=== PATIENT | male | born 1965 | race Caucasian/White ===

== ENCOUNTER 2017-01-20 10:30 | Emergency (ER) | payer OTHER ==
--- NOTE | 2017-01-20 11:48 | ERNOTE ---
Back Pain ER HPI Date of Service: 01/20/17 Presenting Symptoms: injury/pain to back Time Seen by Provider: 01/20/17 10:52 Source: patient Exam Limitations: no limitations Immunizations: IMMUNIZATION HX Immunizations Up to Date Yes History of Influenza Vaccine No Hx Pneumococcal Vaccination No Allergies/Adverse Reactions: Allergies bee pollen Allergy (Severe, Verified 01/20/17 10:40) Anaphylaxis BEE STINGS Iodinated Contrast- Oral and IV Dye [Iodinated Contrast Media - IV Dye] Allergy (Mild, Verified 01/20/17 10:40) Hives Home Medications: HOME MEDICATIONS EPINEPHrine [Epipen 2-Akhil] 0.3 mg IM ONCE PRN 07/31/15 [Last Taken Unknown] Omeprazole [Prilosec] 40 mg PO DAILY 07/31/15 [Last Taken Unknown] Cyclobenzaprine HCl [Flexeril] 10 mg PO TID PRN #30 tab 01/20/17 [Last Taken Unknown] Lisinopril [Zestril] 10 mg PO DAILY 01/20/17 [Last Taken Unknown] Naproxen [Naprosyn] 500 mg PO BID PRN #60 tab 01/20/17 [Last Taken Unknown] Narrative: Pt. 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 Pt. denies any chronic back conditions, numbness, tingling, SOB, CP, NVD, fever, recent illness, but states that pain improved with heat and worsens with movement. Review of Systems - Review of Systems Constitutional: Present: no symptoms reported. Absent: recent illness, fever, chills, weakness, fatigue, malaise EYE: Present: no symptoms reported ENT: Present: no symptoms reported Respiratory: Present: no symptoms reported. Absent: shortness of breath, cough , wheezing Cardiology: Present: no symptoms reported. Absent: chest pain, palpitations, edema Gastrointestinal/Abdominal: Present: no symptoms reported. Absent: nausea, vomiting, diarrhea, abdominal pain Genitourinary: Present: no symptoms reported Musculoskeletal: Present: back pain - LLback Skin: Present: no symptoms reported. Absent: rash, dryness, change in color Neurological: Present: no symptoms reported. Absent: headache, dizziness/light- headedness, numbness, tingling All Other Systems: All systems neg except as marked - Patient's Past Medical History Patient History - Medical: GERD Patient History - Cardiac/Respiratory: CVA/Stroke, Hyperlipidemia Patient History - Cancer: No Hx of Cancer Patient History - Surgical Procedures: Appendectomy, Cholecystectomy, Other Patient History - Other: None - Family History Father Family History - Medical: Diabetes Type 2 Family History - Cardiac/Respiratory: Hypertension, Other Grandmother-Paternal Family History - Medical: No pertinent hx Family History - Cardiac/Respiratory: No pertinent hx - Social History Living Situations: home Abuse History: No History of abuse Psych History: No pertinent hx Smoking Status: Current every day smoker Have you smoked in the past 12 months: Yes Alcohol Use: none Drug Use: marijuana - Immunizations Immunizations Up to Date: Yes Hx Pneumococcal Vaccination: No History of Influenza Vaccine: No Physical Exam - Physical Exam General Appearance: Present: wd/wn, alert, no apparent distress Head Exam: Present: normal inspection, no evidence of injury Eye Exam: Normal inspection: bilateral, PERRL: bilateral, EOMI: bilateral Respiratory: Present: no respiratory distress, normal breath sounds, no accessory muscle use, chest nontender, lungs clear Cardiovascular/Chest: Present: regular rate, rhythm, no murmur, normal peripheral pulses Back Exam: Present: vertebral tenderness - L3-S1, muscle spasm - L paraspinous Neurological Exam: Present: alert, oriented, normal mood/affect, no motor/ sensory deficits, boom tender II-XII nml as tested, normal cerebellar test Skin Exam: Present: normal color, warm/dry. Absent: pallor, skin rash ED Progress - Date and Time Seen: Date and Time: 01/20/17 12:18 First set of xrays on pt. were not of this patient and were significant for severe degenerative disease. The second set of xrays on this pt. were this pt. and have very mild disease...therefore feel tht pt. is likely having muscle strain. - Vital Signs Patient's Vital Signs:: I have reviewed the patient's vital signs. Vital Signs: Vital Signs 01/20/17 10:37 Temperature 37 C Pulse Rate 82 Respiratory 14 Rate Blood Pressure 137/58 O2 Sat by Pulse 97 Oximetry - X-Ray X-Ray #1 X-Ray: lumbosacral Interpretation: Interp. by me X-ray Comments: no obvious acute ossious abnormality - Progress/Reassessment Chief Complaint: Back Pain Departure Clinical Impression: Lumbar strain Qualifiers: Encounter type: initial encounter Qualified Code(s): S39.012A - Strain of muscle, fascia and tendon of lower back, initial encounter - Departure Disposition: Home self-care Condition: Good Instructions: Muscle Strain, [id number] Additional Instructions: Please follow up with primary provider in 2-3 days if no improvement. Referrals: Daphne Joel FNP [Primary Care Provider] - Prescriptions: Cyclobenzaprine HCl [Flexeril] 10 mg PO TID PRN #30 tab PRN Reason: MUSCLE SPASMS Naproxen [Naprosyn] 500 mg PO BID PRN #60 tab PRN Reason: Pain
[2017-01-20 11:53] VITALS: BP 131/57
== END 2017-01-20 12:30 | disposition home or self-care (01) ==
LOC: ER 10:30
DX: S39.012A Strain of muscle, fascia and tendon of lower back, initial encounter (principal); X50.0XXA Overexertion from strenuous movement or load, initial encounter; Y93.9 Activity, unspecified; Y92.9 Unspecified place or not applicable; E78.5 Hyperlipidemia, unspecified; Z86.73 Personal history of transient ischemic attack (TIA), and cerebral infarction without residual deficits; F17.200 Nicotine dependence, unspecified, uncomplicated

== ENCOUNTER 2017-02-11 09:01 | Emergency (ER) | payer OTHER ==
[2017-02-11] MEDS ORDERED: PANTOPRAZOLE SODIUM 40 MG in NORMAL SALINE 100 ML IV ONE (09:16)
[2017-02-11] MEDS ORDERED: NORMAL SALINE 1,000 ML IV ONE ×2 (09:16→11:15)
--- NOTE | 2017-02-11 09:19 | ERNOTE ---
Abdominal HPI - General Chief Complaint: Abdominal Pain Time Seen by Provider: 02/11/17 09:10 Source: patient Exam Limitations: no limitations - Immun/Allergies/Home Medications Immunizatons: IMMUNIZATION HX Immunizations Up to Date Yes History of Influenza Vaccine No Hx Pneumococcal Vaccination No Allergies/Adverse Reactions: Allergies bee pollen Allergy (Severe, Verified 01/20/17 10:40) Anaphylaxis BEE STINGS Iodinated Contrast- Oral and IV Dye [Iodinated Contrast Media - IV Dye] Allergy (Mild, Verified 01/20/17 10:40) Hives Home Medications: HOME MEDICATIONS EPINEPHrine [Epipen 2-Akhil] 0.3 mg IM ONCE PRN 07/31/15 [Last Taken Unknown] Omeprazole [Prilosec] 40 mg PO DAILY 07/31/15 [Last Taken Unknown] Cyclobenzaprine HCl [Flexeril] 10 mg PO TID PRN #30 tab 01/20/17 [Last Taken Unknown] Lisinopril [Zestril] 10 mg PO DAILY 01/20/17 [Last Taken Unknown] Naproxen [Naprosyn] 500 mg PO BID PRN #60 tab 01/20/17 [Last Taken Unknown] - History of Present Illness Narrative: Patient presents with generalized abdominal pain and he states he feels somewhat bloated. The patient missed to having GERD he also states these are symptoms that are somewhat reminiscent of when he had a small bowel obstruction in the past. He rates the pain as moderate in intensity and crampy in nature. Onset of symptoms appeared to be late last night and got worse this morning. Timing: constant Quality: moderate, cramping Activities at Onset: none Associated Symptoms: Present: denies symptoms Prior Abdominal Problems: Present: similar symptoms - with both his GERD and a small bowel obstruction Review of Systems - Review of Systems Constitutional: Present: See HPI EYE: Present: no symptoms reported ENT: Present: no symptoms reported Respiratory: Present: no symptoms reported Cardiology: Present: no symptoms reported Gastrointestinal/Abdominal: Present: See HPI, abdominal pain Genitourinary: Present: no symptoms reported Musculoskeletal: Present: no symptoms reported Skin: Present: no symptoms reported Neurological: Present: no symptoms reported Endocrine: Present: no symptoms reported Hematologic/Lymphatic: Present: no symptoms reported Psych: Present: no symptoms reported - Patient's Past Medical History Patient History - Medical: GERD, Other - SBO Patient History - Cardiac/Respiratory: Hyperlipidemia Patient History - Cancer: No Hx of Cancer Patient History - Surgical Procedures: Appendectomy, Cholecystectomy, Other Patient History - Other: None - Family History Father Family History - Medical: Diabetes Type 2 Family History - Cardiac/Respiratory: Hypertension, Other Grandmother-Paternal Family History - Medical: No pertinent hx Family History - Cardiac/Respiratory: No pertinent hx - Social History Living Situations: home Abuse History: No History of abuse Psych History: No pertinent hx Smoking Status: Current every day smoker Have you smoked in the past 12 months: Yes Alcohol Use: none Drug Use: marijuana - Immunizations Immunizations Up to Date: Yes Hx Pneumococcal Vaccination: No History of Influenza Vaccine: No Physical Exam - Physical Exam General Appearance: Present: wd/wn, alert, moderate distress Head Exam: Present: normal inspection Eye Exam: Normal inspection: bilateral, PERRL: bilateral Ears, Nose, Throat: Present: normal ENT inspection, H, normal pharynx Neck: Present: normal inspection, nontender Respiratory: Present: no respiratory distress, normal breath sounds, no accessory muscle use, chest nontender, lungs clear Cardiovascular/Chest: Present: regular rate, rhythm, no murmur, normal peripheral pulses Gastrointestinal/Abdominal: Present: tenderness, abnormal bowel sounds, distended Rectal Exam: Present: deferred Back Exam: Present: normal inspection, normal range of motion Extremity Exam: Present: normal inspection, non-tender, no edema, normal range of motion Neurological Exam: Present: alert, oriented, normal mood/affect Skin Exam: Present: normal color, warm/dry Lymphatic Exam: Present: no adenopathy ED Progress - Results and Orders Patient's Lab Results:: I have reviewed the patient's lab results. - Vital Signs Patient's Vital Signs:: I have reviewed the patient's vital signs. Vital Signs: Vital Signs 02/11/17 09:05 Temperature 36.6 C Pulse Rate 82 Respiratory 16 Rate Blood Pressure 130/82 O2 Sat by Pulse 98 Oximetry - CT/Ultrasound CT/Ultrasound Narrative: CT results of the abdomen and pelvis were reviewed by me as well as Dr. Starks. - Progress/Reassessment Chief Complaint: Abdominal Pain Progress:: Improved Plan - Plan Plan: While we are making preparations for a CT of the abdomen and pelvis patient stated that he needed to go have a cigarette as his anxiety level had reached too high of a level. Patient's pain has improved considerably and his lactate dropped back to the normal range so he will be referred back to his family physician for will likely be a small bowel follow-through. Dr. Starks and will be glad to see him in the office if needed. Departure - Departure Clinical Impression: Colitis Disposition: Home self-care Condition: Good Instructions: Colitis Referrals: Daphne Joel, RACHELLE [Primary Care Provider] -
[2017-02-11 09:30] LABS: Hematocrit 46.6 % (42.0-52.0); Hemoglobin 15.7 gm/dL (13.5-18.0); Mean Cell Volume 87.6 fl (78-100); Mean Corpuscular Hemoglobin 29.5 pg (27-31); Mean Corpuscular Hgb Conc 33.7 g/dl (32-36); Mean Platelet Volume 11.4 fl (6.0-9.5); Neutrophil # 12.3 K/mm3 (1.3-6.0); Neutrophil % 84.4 % (42-75.0); Platelet Count 187 K/mm3 (150-450); Red Blood Count 5.32 M/mm3 (4.7-6.0); Red Cell Distribution Width 13.8 % (11.5-14.0); White Blood Count 14.6 K/mm3 (4.0-10.5)
[2017-02-11 09:53] LABS: Albumin * 3.8 gm/dl (3.4-5.0); Anion Gap 15.3 mmol/L (6.8-13.8); BUN/Creatinine Ratio 12.7 (9.0-21.6); Bilirubin, Total 0.4 mg/dL (0.0-1.1); Ca. Corrected For Albumin 8.8 mg/dL (8.4-10.2); Carbon Dioxide 26.6 mmol/L (24-32.6); Magnesium 1.6 mg/dL (1.2-2.8); Potassium 3.9 mmol/L (3.4-4.6); Total Protein 7.5 gm/dL (6.2-8.2)
[2017-02-11 10:28] LABS: Urine Bilirubin Negative (NEGATIVE); Urine Blood 50 /ul (NEGATIVE); Urine Ketone Negative (NEGATIVE); Urine Nitrite Negative (NEGATIVE); Urine Protein Negative (NEGATIVE); Urine Specific Gravity >=1.030 SP.GR. (1.005-1.030); Urine Urobilinogen Normal (NORMAL); Urine pH 5.5 pH (5.0-7.0)
[2017-02-11 10:42] LABS: Urine Appearance Clear; Urine Bacteria None Seen; Urine Color Yellow; Urine RBC None Seen /hpf (0-5); Urine WBC None Seen /hpf (0-5)
[2017-02-11] MEDS ORDERED: DIATRIZOATE MEGLUMINE, SODIUM 30 ML BTL ONE ×2 (11:17→12:53)
[2017-02-11] MEDS ORDERED: diphenhydrAMINE HCL 50 MG/ML VIAL IV ONE (11:39)
[2017-02-11] MEDS ORDERED: METHYLPREDNISOLONE SOD SUCC/PF 40 MG/ML VIAL IV ONE (11:39)
[2017-02-11] MEDS ORDERED: DIATRIZOATE MEGLUMINE, SODIUM 30 ML BTL PO ONE (12:03)
[2017-02-11 17:22] VITALS: BP 132/92
== END 2017-02-11 17:20 | disposition home or self-care (01) ==
LOC: ER 09:01
DX: K52.9 Noninfective gastroenteritis and colitis, unspecified (principal); F17.200 Nicotine dependence, unspecified, uncomplicated; Z53.29 Procedure and treatment not carried out because of patient's decision for other reasons